=== PATIENT | male | born 1975 | race Caucasian/White ===

== ENCOUNTER 2018-09-02 05:10 | Emergency (ER) | payer OTHER ==
[~2018-09-02] VITALS: Ht 182.9 cm; Wt 115.7 kg
[~2018-09-02 05:10] MED LIST: FLONASE16 GM; PAXIL 20 MG TAB20 MG; TUSSIONEX PENN473 ML PO; ZPAK PO
[2018-09-02] MEDS ORDERED: KEFLEX500 M2 PO (05:24)
[2018-09-02] MEDS ORDERED: NORCO 7.5-3251 EACH PO (05:24)
[2018-09-02 05:53] LABS: ABSOLUTE BASOPHILS 0.1 thou/uL (0.0-0.2); ABSOLUTE EOSINOPHILS 0.2 thou/uL (0.0-0.7); ABSOLUTE LYMPHOCYTES 2.3 thou/uL (0.8-5.3); ABSOLUTE MONOCYTES 0.8 thou/uL (0.0-1.2); ABSOLUTE NEUTROPHILS 7.4 thou/uL (1.6-8.1); BASOPHILS 0.9 %; EOSINOPHILS 1.9 %; HEMATOCRIT 39.6 % (42.0-52.0); HEMOGLOBIN 13.6 gm/dL (14.0-18.0); LYMPHOCYTES 21.2 %; MCH 29.2 pg (26.0-34.0); MCHC 34.4 g/dL (28.0-37.0); MCV 85.1 fL (80.0-100.0); MONOCYTES 7.7 %; MPV 9.5 fl. (7.2-11.1); NUCLEATED RBCS 0 /100WBC; PLATELET COUNT* 239 thou/uL (150-400); POLYS 68.3 %; RBC 4.65 mil/uL (4.50-6.00); RDW-CV 13.1 % (10.5-14.5); WBC 10.8 thou/uL (4.0-11.0)
[2018-09-02 06:06] LABS: CALCIUM 8.7 mg/dL (8.5-10.1); POTASSIUM 4.2 mmol/L (3.5-5.1)
[2018-09-02 06:11] LABS: ALBUMIN 3.8 g/dL (3.4-5.0); TOTAL BILIRUBIN 0.3 mg/dL (<0.1-1.0); TOTAL PROTEIN 7.5 g/dL (6.4-8.2)
[2018-09-02] MEDS ORDERED: CLEOCIN HCL150 MG PO (07:06)
[2018-09-02] MEDS ORDERED: PERCOCET 7.5-31 EACH PO (07:06)
[2018-09-02 07:24] VITALS: BP 127/77
== END 2018-09-02 07:26 | disposition home or self-care (01) ==
LOC: M.ERS 05:10
PROVIDERS: Emergency Medicine
DX: L03.113 Cellulitis of right upper limb (principal)

== ENCOUNTER 2019-07-29 00:09 | Inpatient (IN) | payer OTHER ==
[~2019-07-29] VITALS: Ht 182.9 cm; Wt 122.9 kg
[2019-07-29] VITALS (7 sets, daily range): BP systolic 138–149; BP diastolic 88–104
[~2019-07-29 00:09] MED LIST changes: +CLEOCIN HCL150 MG PO; +KEFLEX500 M2 PO; +NORCO 7.5-3251 EACH PO; +PERCOCET 7.5-31 EACH PO
[2019-07-29 00:34] LABS: URINE BILIRUBIN NEGATIVE (Negative); URINE BLOOD 2+ (Negative); URINE CLARITY CLEAR; URINE COLOR YELLOW; URINE GLUCOSE-RANDOM NEGATIVE (Negative); URINE KETONES NEGATIVE (Negative); URINE LEUKOCYTES-REFLEX NEGATIVE (Negative); URINE NITRITE-REFLEX NEGATIVE (Negative); URINE PROTEIN NEGATIVE (Negative); URINE UROBILINOGEN 0.2 E.U./dl (0.2-1.0)
[2019-07-29] MEDS ORDERED: CLARITIN10 M3 PO (00:36)
[2019-07-29 00:46] LABS: ABSOLUTE BASOPHILS 0.1 thou/uL (0.0-0.2); ABSOLUTE EOSINOPHILS 0.4 thou/uL (0.0-0.7); ABSOLUTE LYMPHOCYTES 2.6 thou/uL (0.8-5.3); ABSOLUTE NEUTROPHILS 7.2 thou/uL (1.6-8.1); BASOPHILS 0.7 %; EOSINOPHILS 3.4 %; HEMATOCRIT 42.3 % (42.0-52.0); LYMPHOCYTES 23.2 %; MCH 28.1 pg (26.0-34.0); MCV 84.9 fL (80.0-100.0); MONOCYTES 8.7 %; NUCLEATED RBCS 0 /100WBC; PLATELET COUNT* 258 thou/uL (150-400); RBC 4.99 mil/uL (4.50-6.00); RDW-CV 13.4 % (10.5-14.5); WBC 11.2 thou/uL (4.0-11.0)
[2019-07-29 00:47] LABS: CASTS None Seen /LPF (None Seen); CRYSTALS None Seen /LPF (None Seen); MUCUS 0-3 Light strn/LPF (None Seen); SQUAMOUS 0-3 Few /LPF (0-3); URINE WBC-REFLEX 0-5 Rare /HPF (0-5)
[2019-07-29 00:55] LABS: CALCIUM 8.7 mg/dL (8.5-10.1); CREATININE 1.7 mg/dL (0.6-1.3); POTASSIUM 3.7 mmol/L (3.5-5.1)
[2019-07-29 01:00] LABS: ALBUMIN 4.1 g/dL (3.4-5.0); TOTAL BILIRUBIN 0.2 mg/dL (<0.1-1.0); TOTAL PROTEIN 7.6 g/dL (6.4-8.2)
--- NOTE | 2019-07-29 08:20 | NUR ---
REPORT RECEIVED FROM ED. PT ARRIVED TO UNIT PER CART TO ROOM 112. AMBULATED WITH A STEADY GAIT. A+OX4. CALM AND COOPERATIVE. PAIN MANAGED WITH PRN PAIN MEDICATION. UROLOGY CONSULTED. NURSING ASSESSMENT COMPLETE. CALL LIGHT IN REACH. HOURLY ROUNDS FOR SAFETY.
[2019-07-29] MEDS ORDERED: FLOMAX0.4 MG PO (16:10)
[2019-07-29] MEDS ORDERED: OXYBUTYNIN 5 MG5 M2 PO (16:12)
[2019-07-29] MEDS ORDERED: PYRIDIUM200 MG PO (16:13)
[2019-07-29] MEDS ORDERED: CIPRO500 M1 PO (16:13)
[2019-07-29] MEDS ORDERED: NORCO 5-325 TA1 EAC1 PO (16:14)
--- NOTE | 2019-07-29 17:02 | NUR ---
PT RETURNED FROM SURGERY WITH NO COMPLICATIONS AND NO COMPLAINTS OF PAIN. PT TOLERATING DIET WITH NO COMPLAINT AND AMBULATING WITH NO CONCERNS. PT IV REMOVED INTACT, EDUCATED TO FOLLOW UP WITH PCP AND UROLOGY IN 2 WEEKS. PT PROVIDED WITH 5 RX AND A WORK NOTE STATING THAT HE WAS SEEN IN OUR [facility] AND HAD A SURGICAL PROCEDURE WITH NO RESTRICTIONS TO RETURN TO WORK. PT AMBULATED OUT OF FACILTY WITH STEADY GAIT WITH HOSPITAL STAFF AT THIS TIME. WILL SIGN OFF.
[2019-08-07 17:08] LABS: STONE COLOR Tan (()); STONE SIZE 4x3x3 mm (()); STONE URIC ACID 97 % (())
--- NOTE | 2019-08-08 12:53 | OP ---
[address] [address] OPERATIVE REPORT Name: JEANINE LARSON Room: [address] IN M.R.#: [id number] Admission: 07/29/19 Attend Phys: Caterina Street MD Discharge: 07/29/19 Date of : 79 Report #: [id number] THIS REPORT FOR: //name// CC: Liz Street DATE OF SERVICE: 07/29/2019 PREOPERATIVE DIAGNOSES: Right ureteral stone. POSTOPERATIVE DIAGNOSIS: Right ureteral stone. PROCEDURES PERFORMED: 1. Cystoscopy. 2. Right retrograde pyelogram. 3. Right ureteroscopy. 4. Right ureteral stent placement. STAFF: Dr. David Owen. COMPLICATIONS: None. DRAINS: 6 x 26 right ureteral stent. SPECIMENS: Stone within the urinary bladder. INDICATIONS: The patient is a 44-year-old gentleman who presented to [place] ER this morning with right-sided flank pain. A CT demonstrated a 3-4 mm right UVJ stone with proximal hydronephrosis. The patient was also found to have elevated creatinine and JEANNINE with a value of 1.7. After thorough discussion, the decision was made to proceed with ureteroscopy given the patient's elevated creatinine. DESCRIPTION OF PROCEDURE: On 07/29/2019, after consent was obtained, the patient was taken to the operating room and placed in supine position. He was then placed under general anesthesia. He received preoperative IV Cipro for antibiotic coverage. He was then placed in dorsal lithotomy and his genitals were prepped and draped in normal sterile fashion. Next, I began the procedure by inserting the 22.5-[place] rigid cystoscope transurethrally without any difficulty. Once into the bladder, identified the right ureteral orifice, which was normal orthotopic position with efflux of clear yellow urine. Also, at this point, I identified a small stone residing near the trigone. Given the appearance of a very tight right ureteral orifice, I was unsure if this was actually his ureteral stone. A retrograde pyelogram was performed, which showed some mild hydronephrosis without any definitive stone burden[place] [address] OPERATIVE REPORT Name: MARSHAJEANINEMARILEE DELGADO Room: [address] IN [facility].#: [id number] Admission: 07/29/19 Attend Phys: Caterina Street MD Discharge: 07/29/19 Date of : 79 Report #: [id number] patient's elevated creatinine, I thought it prudent to perform ureteroscopy at this point. A sensor wire was then passed in the upper pole. I withdrew the cystoscope and inserted a semirigid ureteroscope. I was able to pass this up alongside the sensor wire in the distal ureter. This was very tight just accommodating the scope. I was able to pass this up into the mid ureter and there were signs of any further stone burden. At this point, I was sure that the bladder stone was the distal right ureteral stone that was represented on CT. That was through the ureteroscope. I then backloaded the cystoscope over the sensor wire and selected a 6 x 26 stent was passed up the upper pole under fluoroscopic guidance having a good coil in the urinary bladder under direct visual guidance. The patient was emptied. He was awakened from anesthesia. <ELECTRONICALLY SIGNED> By: David Owen MD 08/08/19 [id number] Owen MD /nt
== END 2019-07-29 16:20 | disposition home or self-care (01) | DRG 661 ==
LOC: M.ERS 00:09 → M.ORTHSURG 01:58 → M.TBA-ER 01:58 → M.ORTHSURG 02:30
PROVIDERS: Family Medicine; ADMIT Internal Medicine
PROC: BT1D1ZZ Fluoroscopy of Right Kidney, Ureter and Bladder using Low Osmolar Contrast (ICD-10-PCS; principal; 2019-07-29)
PROC: 0T768DZ Dilation of Right Ureter with Intraluminal Device, Via Natural or Artificial Opening Endoscopic (ICD-10-PCS; principal; 2019-07-29)
DX: N13.2 Hydronephrosis with renal and ureteral calculous obstruction (principal); N17.9 Acute kidney failure, unspecified; Z86.718 Personal history of other venous thrombosis and embolism; Z84.1 Family history of disorders of kidney and ureter; Z79.899 Other long term (current) drug therapy